=== PATIENT | male | born 1950 | race Caucasian/White ===

== ENCOUNTER → 2016-08-29 | Outpatient (CLI) | payer OTHER ==
[~2016-08-29] VITALS: Ht 175.3 cm; Wt 80.8 kg
[~2016-08-29] MED LIST: ALFU10TA30 PO; ASPI81TA28 PO; FINA5TAB PO; FISHOIL PO; PSYL0.524 PO; VGR50 PO; [UNRECOGNIZED DRUG - CODE] PO
[2016-08-29 13:05] VITALS: Ht 175.3 cm; Wt 80.8 kg
--- NOTE | 2016-08-29 13:32 | PAT Medication Instructions ---
Service Date Aug 29, 2016. Current Home Medication List Alfuzosin Hcl (Uroxatral), 10 MG PO HS Aspirin (Aspirin Ec), 81 MG PO QAM Creatine ([id number]), 3-4 TAB PO DAILY Finasteride (Proscar), 5 MG PO HS Psyllium (Metamucil), 2 TAB PO QAM Sildenafil Citrate (Viagra), 50 MG PO PRN [Fish Oil], 1 TAB PO QAM Medication Instructions For Your Scheduled Surgery - Check with surgeon for instructions: Aspirin (Aspirin Ec), 81 MG PO QAM - Hold the following medications 2 weeks prior to surgery: [Fish Oil], 1 TAB PO QAM - Hold the following medications the morning of surgery: Psyllium (Metamucil), 2 TAB PO QAM Sildenafil Citrate (Viagra), 50 MG PO PRN Creatine ([id number]), 3-4 TAB PO DAILY - Take the following medications as scheduled the night before surgery: Sildenafil Citrate (Viagra), 50 MG PO PRN (if needed) Finasteride (Proscar), 5 MG PO HS Alfuzosin Hcl (Uroxatral), 10 MG PO HS If you have any questions please call us at [phone] or [phone] or [phone]
--- NOTE | 2016-08-29 14:07 | DIAGNOSTIC IMAGING REPORT ---
TWO VIEW CHEST CLINICAL HISTORY: Preoperative examination. FINDINGS: PA and lateral chest radiographs are obtained. No prior studies are available for comparison at the time of dictation. The heart is top normal for projection and there is atherosclerotic calcification of the thoracic aorta. The lungs and pleural spaces are clear. There is no pneumothorax. The bony thorax appears intact. IMPRESSION: No active disease in the chest. Electronically signed by: Randall Barrios M.D. 08/29/2016 2:06 PM Dictated Date/Time: 08/29/2016 2:05 PM
[2016-08-29 14:51] LABS: BASO % 0.5 %; BASO ABS # 0.03 K/uL (0-0.2); COMPLETE YES; EOS % 5.7 %; HEMATOCRIT 45.4 % (42-52); IG% 0.9 %; LYMPH % 29.7 %; LYMPH ABS # 1.66 K/uL (1.2-3.4); MEAN CELL VOLUME 94.2 fL (80-100); MEAN CORPUSCULAR HEMOGLOBIN 31.5 pg (25-34); MEAN CORPUSCULAR HGB CONC 33.5 g/dl (32-36); MEAN PLATELET VOLUME 8.8 fL (7.4-10.4); MONO % 10.6 %; NEUT % 52.6 %; PLATELET COUNT 266 K/uL (130-400); RED BLOOD COUNT 4.82 M/uL (4.7-6.1); WHITE BLOOD COUNT 5.58 K/uL (4.8-10.8)
[2016-08-29 14:56] LABS: URINE APPEARANCE CLEAR (CLEAR); URINE BILIRUBIN NEG (NEG); URINE COLOR YELLOW; URINE NITRITE NEG (NEG); URINE SPECIFIC GRAVITY 1.023 (1.000-1.030); UROBILINOGEN NEG (NEG)
[2016-08-29 14:58] LABS: MANUAL MICROSCOPIC REQUIRED? NO; REVIEW REQ? NO
[2016-08-29 16:00] LABS: BUN/CREATININE RATIO 18.8 (10-20); CALCIUM 8.9 mg/dl (8.5-10.1); CREATININE 1.3 mg/dl (0.60-1.40); POTASSIUM 4.6 mmol/L (3.5-5.1)
== END | disposition home or self-care (01) ==
LOC: C.LAB 08:00 → EDSTATUS 09-15 07:15
PROVIDERS: ATTEND Urology
DX: Z01.810 Encounter for preprocedural cardiovascular examination (principal); Z01.811 Encounter for preprocedural respiratory examination; Z01.812 Encounter for preprocedural laboratory examination; R00.1 Bradycardia, unspecified; Z79.899 Other long term (current) drug therapy

== ENCOUNTER → 2017-10-03 | Outpatient (CLI) | payer OTHER ==
[~2017-10-03] MED LIST changes: +ALFU10TA2 PO; -ALFU10TA30 PO
== END | disposition home or self-care (01) ==
LOC: C.LAB 15:52
PROVIDERS: ATTEND Urology
DX: R97.20 Elevated prostate specific antigen [PSA] (principal)